=== PATIENT | female | born 1960 | race Two or more races ===

== ENCOUNTER 2018-05-28 13:22 | Outpatient (CLI) | payer OTHER ==
[~2018-05-28 13:22] MED LIST: LITHIUM CARBON300 MG PO; NORFLEX100 MG PO; PROZAC10 MG PO; TORADOL10 MG PO
== END 2018-05-28 13:37 | disposition home or self-care (01) ==
LOC: MAMO-SONO 13:22
DX: N60.11 Diffuse cystic mastopathy of right breast (principal)

== ENCOUNTER 2020-10-07 11:52 | Outpatient (CLI) | payer OTHER | END 2020-10-07 11:59 | disposition home or self-care (01) | LOC: LAB 11:52 | PROVIDERS: ATTEND Internal Medicine Cardiovascular Disease | DX: Z00.00 Encounter for general adult medical examination without abnormal findings (principal) ==

== ENCOUNTER → 2021-12-13 | Outpatient (CLI) | payer OTHER | END | disposition home or self-care (01) | LOC: MAMO-SONO 11:29 | PROVIDERS: ATTEND Obstetrics & Gynecology | DX: N60.11 Diffuse cystic mastopathy of right breast (principal) ==